=== PATIENT | female | born 1985 | race Two or more races ===

== ENCOUNTER 2025-07-26 14:02 | Emergency (ER) | payer SELFPAY ==
[2025-07-26 14:15] VITALS: BP 131/91; PULSE 110; RESP 19; TEMP 37.2; O2SAT 100; BMI 22.6
--- NOTE | 2025-07-26 14:51 | XR_ITS ---
EXAMINATION: PA chest single view TECHNIQUE: 1. Upright PA chest single view Date and time: July 26, 2025, 1510 hours INDICATIONS: Chest and left hand numbness beginning 2 days ago. FINDINGS: Normal heart size Lungs are clear. Osseous structures are intact IMPRESSION: No active disease
--- NOTE | 2025-07-26 14:51 | EDNOTE_ITS ---
<Statement entered by Ivet Griffin MD - 08/08/25 14:46> As co-signing physician, I was present and available for consult prn. I concur with the plan and care as documented by the midlevel provider. ED Chest Pain RME/HPI General Chief Complaint: Chest Pain Stated Complaint: CHEST PAIN WITH LEFT ARM PAIN Time Seen by Provider: 07/26/25 14:31 Arrival date/time: 07/26/25 14:02 This is a 39-year-old female that comes into the emergency room with chest pain and left arm pain. Patient appears very anxious and has tremors. Patient reports that he drinks every day. Patient has not had a drink today. I asked patient if he wants to stop drinking and he says that sometimes she does. Patient denies any past medical history. Related Data Allergies Allergy/AdvReac Type Severity Reaction Status Date / Time No Known Allergies Allergy Verified 07/26/25 14:07 Review of Systems Review of Systems Systems Reviewed: All systems reviewed, normal except as documented Past Medical History Past Medical History Comments PMH COMMENT: Denies ED Exam Narrative Physical exam: VITAL SIGNS: Reviewed. GENERAL APPEARANCE: Alert and interactive, follows commands, no acute distress HEAD AND FACE: Non-traumatic. ENT: PERRL, conjuctiva pink and clear, eyelid no trauma, Mucous membrane moist. NECK: Supple, nontender, no nuchal rigidity. CHEST: No tenderness, no crepitus, no paradoxical movement, no retractions. LUNGS: breathing even and unlabored HEART: Regular rate, cap refill less than 2 seconds ABDOMEN: Soft, nondistended, no guarding, nontender, no rebound, no masses, NEUROLOGICAL: Gross motor function intact sensory function intact, Appropriate for age. Shaky tremors MUSCULOSKELETAL: low back nontender, full range of motion. EXTREMITIES: No redness no swelling no skin breakdown on bilateral foot and leg. Distal neurovascular status intact bilateral foot SKIN: Color pink, dry Psych: Anxious Course Quality Measures none Orders Category Date Time Status Consult Workforce Advisor X1 Care 07/26/25 14:44 Completed EKG (ED ONLY) *Do not use* NOW Care 07/26/25 14:44 Completed EKG (ED Only) Stat Exams 07/26/25 14:44 Ordered XR chest 1V Stat Exams 07/26/25 14:51 Completed LORazepam [Ativan] Med 07/26/25 14:45 Discontinued 1 mg PO X1 ONE Vital Signs Vital signs: Vital Signs Temperature 98.9 F 07/26/25 14:15 Pulse Rate 110 H 07/26/25 14:15 Respiratory Rate 19 07/26/25 14:15 Blood Pressure 131/91 H 07/26/25 14:15 Pulse Oximetry (%) 100 07/26/25 14:15 Oxygen Delivery Method Room Air 07/26/25 14:15 PROCEDURES: EKG Interpretation #1: Date of EK07/26/25 Time of EK:44 Rate: 91 Interpretation: Interpreted by me (Sinus rhythm) EKG Impression: Normal sinus rhythm, No ectopy, Normal QRS and Normal intervals Chest Pain MDM Narrative MDM Narrative:: chest x ray: FINDINGS: Normal heart size Lungs are clear. Osseous structures are intact IMPRESSION: No active disease I spoke to patient at length. Patient no longer anxious. Patient initially said she wanted to stop drinking. It is likely that patient was having symptoms of alcohol withdrawal. Patient was given Ativan and symptoms resolved. Patient no longer having tremors. After talking to patient when I did the reassessment it does not seem that she is ready to stop drinking. Patient states she is not from here. I advised her to go to her primary doctor and follow-up with them in 1 to 2 days. Patient verbalized understanding. Advised patient not to be drinking since we just gave her Ativan. Because patient does not want to stop drinking I did not send patient home with benzo however I did tell patient to come back to the emergency room symptoms change or worsen and to follow-up with In 1 to 2 days Patient verbalized understanding. Dragon dictation: Although this document has been carefully reviewed, there may still be some phonetic and other typographical errors. These errors are purely grammatical due to imperfections in the software program and should not be construed in any way to compromise the substance of the patient's medical care during this visit. Patient data External records reviewed:: [facility] previous records and None Clinical information provided by:: patient Social determinants that could affect healthcare access:: none Patient has the following chronic illnesses:: None How is presenting disease/condition affected by chronic disease/condition?: no chronic disease Evaluation data The following diagnostics were reviewed and interpreted by me:: radiology exam (s) and EKG tracing(s) Lab and/or radiology exams considered but not ordered:: None Interpretation Summary: See note Medications / Prescriptions Medications or Prescriptions considered but not ordered:: None Medication administrations:: Medication Administration History Discontinued Medications Lorazepam (Lorazepam 0.5 Mg Tablet) 1 mg PO X1 ONE Stop: 07/26/25 14:46 Last Admin: 07/26/25 14:54 Dose: 1 mg Documented By: OA See MAR Consultations Consultation(s) initiated? (list below): No Diagnosis Most likely diagnosis given after review of the tests above:: Anxiety and possible alcohol withdrawal Admission Indicated Admission indicated?: not indicated Admission Request Was there a request for admission?: No Disposition Plan Disposition Plan: Discharge Discharge Attestation Discharge Attestation: The patient and all family members were given an opportunity to ask questions and understood the discharge instructions. Discharge instructions specifically effects, indications for sooner follow up or return to the emergency department, and the expected course of current diagnosis. Patient condition: Stable Discharge Plan Plan Patient Disposition: HOME (Self Care) Patient condition on transfer: Stable Problem List Clinical Impression: Alcoholism, Anxiety Patient/Caregiver Discharge Instructions Discharge Activity: activity as tolerated Education Materials: Alcoholism Resources, ED Anxiety Reaction Additional Instructions: Serenity un jaquan con herrera medico de cabecera en las proximas 24-48 horas. Regrese a la zaheer de emergencias si hay evidencia de que los signos o sintomas empeoran. Print Language: Irish Stand Alone Forms: Ciera Award Info., Patient Portal Info Letter PA/ERSNT Supervising Physician MIKKI/ERNST Supervising Physician: [email or web address]
== END 2025-07-26 17:07 | disposition home or self-care (01) ==
LOC: SERX 17:49
PROVIDERS: Emergency Provider Emergency Medicine
DX: R07.9 Chest pain, unspecified (principal); F10.20 Alcohol dependence, uncomplicated; F41.9 Anxiety disorder, unspecified
CPT/HCPCS: 71045; 93005; 99283; A9270